=== PATIENT | female | born 1960 | race Caucasian/White ===

== ENCOUNTER 2018-03-26 01:12 | Inpatient (IN) ==
--- NOTE | 2018-03-26 01:50 | ED ---
HPI General Chief complaint: Psychiatric Symptoms Stated complaint: Vol Psy Time Seen by Provider: 03/26/18 01:44 History of Present Illness HPI narrative: Examined in the presence of a female nurse. This is a 57-year- old female who presents requesting psychiatric evaluation. She reports that she has "mental problems" and insomnia. She reports that her family members were feeling stressed out because of her behavior. It is very difficult to obtain any additional information from the patient. She reports that the police dropped her off here. According to the triage nurse she did not see any police dropped her off. The patient reports that she has an unknown psychiatric diagnosis for which she is prescribed Latuda by someone named Gretel Cardona. She denies any drug or alcohol use. During review of systems she complains of right eye redness. She reports that she poked her right eye 6 days ago. It has been red since then. She denies any eye pain, blurred vision , photophobia or drainage. Symptoms are moderate, duration unknown, aggravated by psychiatric history with no obvious alleviating factors. She has no other complaints at this time. Related Data Home Medications Medication Instructions Recorded Confirmed lurasidone [Latuda] 10 mg PO DAILY 03/26/18 03/26/18 Allergies Allergy/AdvReac Type Severity Reaction Status Date / Time Penicillins Allergy Hives Verified 03/26/18 01:20 sulfamethoxazole Allergy Hives Verified 03/26/18 03:02 [From Bactrim] trimethoprim [From Bactrim] Allergy Hives Verified 03/26/18 03:02 Review of Systems ROS: all other systems reviewed are negative PMFSH Medical History Medical History Orbit fracture (Acute) Patient denies medical problems (Acute) Surgical History Surgical History History of appendectomy (Acute) Social History Social History Substance History: No History of Abuse Second Hand Smoke Exposure: Yes Smoking Status: Current every day smoker Tobacco Type: Cigarettes How Often Do You Have a Drink Containing Alcohol: Monthly or less Recent Travel in [facility] within the Last 8 Weeks: No Recent Out of Country Travel within the Last 8 Weeks: No Exam Narrative Exam Narrative: GENERAL: This is a well-developed well-nourished female in no acute distress. She vacillates between crying and having a flat affect. SKIN: Warm and dry. HEAD: Atraumatic. Normocephalic. EYES: Pupils equal and round reactive to light extraocular muscles are intact. Right eye subconjunctival hemorrhaging is noted. There is no pain with extraocular range of motion. Wood's lamp reveals no areas of increased corneal uptake, negative Luis Miguel's. ENT: No nasal bleeding or discharge. Mucous membranes pink and moist. NECK: Trachea midline. No JVD. CARDIOVASCULAR: Regular rate and rhythm. No murmur appreciated. RESPIRATORY: No accessory muscle use. Clear to auscultation. Breath sounds equal bilaterally. GASTROINTESTINAL: Abdomen soft, non-tender, nondistended. Hepatic and splenic margins not palpable. MUSCULOSKELETAL: No obvious deformities. No clubbing. No cyanosis. No edema. NEUROLOGICAL: Awake and alert. No obvious cranial nerve deficits. Motor grossly within normal limits. Normal speech. PSYCHIATRIC: Flat affect. Insight and judgment appear impaired. Course Initial Documented Vital Signs Temperature 97.6 F 03/26/18 01:20 Pulse Rate 83 03/26/18 01:20 Respiratory Rate 18 03/26/18 01:20 Blood Pressure 159/77 H 03/26/18 01:20 Pulse Oximetry 98 03/26/18 01:20 Last Documented Vital Signs Temperature 97.6 F 03/26/18 01:20 Pulse Rate 83 03/26/18 01:20 Respiratory Rate 18 03/26/18 01:20 Blood Pressure 159/77 H 03/26/18 01:20 Pulse Oximetry 98 03/26/18 01:20 Medical Decision Making MDM Narrative Medical decision making narrative: 57-year-old female who was prescribed Latuda for an unknown psychiatric diagnosis presents for psychiatric evaluation. She has right eye subconjunctival hemorrhage which will resolve on its own. She has had difficulty sleeping for the past several days. She has no other medical complaints at this time. Mental health screening discussed with the patient. Psychiatric screen ordered. Lab work imaging studies have been reviewed. The patient is medically cleared for psychiatric disposition. Medical Screen Exam Complete: Yes Emergency Medical Condition: Yes Differential Diagnosis Differential Diagnosis: Bipolar disorder, schizophrenia, acute psychosis, schizoaffective disorder, substance-induced mood disorder Lab Data Result diagrams: 03/26/18 02:50 03/26/18 02:50 Lab Results 03/26/18 03/26/18 03/26/18 Range/Units 02:50 02:50 02:50 WBC 7.6 (4.0-11.0) th/mm3 RBC 4.74 (4.00-5.30) mil/mm3 Hgb 14.2 (11.6-15.3) gm/dL Hct 41.6 (35.0-46.0) % MCV 87.6 (80.0-100.0) fL MCH 29.9 (27.0-34.0) pg MCHC 34.1 (32.0-36.0) % RDW 13.9 (11.6-17.2) % Plt Count 224 (150-450) th/mm3 MPV 8.3 (7.0-11.0) fL Neut % (Auto) 59.7 (16.0-70.0) % Lymph % (Auto) 28.9 (9.0-44.0) % [place] % (Auto) 6.8 (0.0-8.0) % Eos % (Auto) 2.2 (0.0-4.0) % Baso % (Auto) 2.4 H (0.0-2.0) % Neut # (Auto) 4.5 (1.8-7.7) th/mm3 Lymph # (Auto) 2.2 (1.0-4.8) th/mm3 [place] # (Auto) 0.5 (0.0-0.9) th/mm3 Eos # (Auto) 0.2 (0.0-0.4) th/mm3 Baso # (Auto) 0.2 (0.0-0.2) th/mm3 WBC Differential . Differential Comment Auto diff final Sodium 141 (136-145) meq/L Potassium 4.1 (3.5-5.1) meq/L Chloride 106 (98-107) meq/L Carbon Dioxide 27.9 (21.0-32.0) meq/L Anion Gap 7 (5-15) meq/L BUN 12 (7-18) mg/dL Creatinine 0.69 (0.50-1.00) mg/dL Estimated GFR 88 L (>89) mL/min Random Glucose 105 (74-106) mg/dL Calcium 9.2 (8.5-10.1) mg/dL Magnesium 2.4 (1.5-2.5) mg/dL Total Bilirubin 0.2 (0.2-1.0) mg/dL AST 30 (15-37) U/L ALT 58 H (10-53) U/L Alkaline Phosphatase 111 (45-117) U/L Total Protein 8.2 (6.4-8.2) g/dL Albumin 4.2 (3.4-5.0) g/dL TSH 3.210 (0.358-3.740) uIU/mL Urine Color (Yellw/Straw) Urine Clarity (Clear) Urine pH (5.0-8.5) Ur Specific [place] (1.002-1.035) Urine Protein (Neg-Trace) mg/dL Urine Glucose (UA) (Negative) mg/dL Urine Ketones (Negative) mg/dL Urine Occult Blood (Negative) Urine Nitrate (Negative) Urine Bilirubin (Negative) Urine Urobilinogen (Less than 2) mg/dL Ur Leukocyte Esterase (Negative) Urine RBC (0-3) /hpf Urine WBC (0-5) /hpf Ur Squamous Epith Cells (0-5) /hpf Urine Bacteria (None) /hpf Urine Mucus (Occasional) /lpf Micro UA Comment Ur Microscopic Review Urine Culture Comments Urine Opiates Screen Neg (Neg) Ur Barbiturates Screen Neg (Neg) Ur Amphetamines Screen Neg (Neg) U Benzodiazepines Scrn Neg (Neg) Urine Cocaine Screen Neg (Neg) U Cannabinoids Screen Neg (Neg) Serum Alcohol Less than 3 (0-5) mg/dL 03/26/18 Range/Units 02:50 WBC (4.0-11.0) th/mm3 RBC (4.00-5.30) mil/mm3 Hgb (11.6-15.3) gm/dL Hct (35.0-46.0) % MCV (80.0-100.0) fL MCH (27.0-34.0) pg MCHC (32.0-36.0) % RDW (11.6-17.2) % Plt Count (150-450) th/mm3 MPV (7.0-11.0) fL Neut % (Auto) (16.0-70.0) % Lymph % (Auto) (9.0-44.0) % [place] % (Auto) (0.0-8.0) % Eos % (Auto) (0.0-4.0) % Baso % (Auto) (0.0-2.0) % Neut # (Auto) (1.8-7.7) th/mm3 Lymph # (Auto) (1.0-4.8) th/mm3 [place] # (Auto) (0.0-0.9) th/mm3 Eos # (Auto) (0.0-0.4) th/mm3 Baso # (Auto) (0.0-0.2) th/mm3 WBC Differential Differential Comment Sodium (136-145) meq/L Potassium (3.5-5.1) meq/L Chloride (98-107) meq/L Carbon Dioxide (21.0-32.0) meq/L Anion Gap (5-15) meq/L BUN (7-18) mg/dL Creatinine (0.50-1.00) mg/dL Estimated GFR (>89) mL/min Random Glucose (74-106) mg/dL Calcium (8.5-10.1) mg/dL Magnesium (1.5-2.5) mg/dL Total Bilirubin (0.2-1.0) mg/dL AST (15-37) U/L ALT (10-53) U/L Alkaline Phosphatase (45-117) U/L Total Protein (6.4-8.2) g/dL Albumin (3.4-5.0) g/dL TSH (0.358-3.740) uIU/mL Urine Color Straw (Yellw/Straw) Urine Clarity Clear (Clear) Urine pH 5.0 (5.0-8.5) Ur Specific [place] 1.005 (1.002-1.035) Urine Protein Negative (Neg-Trace) mg/dL Urine Glucose (UA) Negative (Negative) mg/dL Urine Ketones Negative (Negative) mg/dL Urine Occult Blood Small H (Negative) Urine Nitrate Negative (Negative) Urine Bilirubin Negative (Negative) Urine Urobilinogen Less than 2 (Less than 2) mg/dL Ur Leukocyte Esterase Negative (Negative) Urine RBC 1 (0-3) /hpf Urine WBC 1 (0-5) /hpf Ur Squamous Epith Cells <1 (0-5) /hpf Urine Bacteria Rare H (None) /hpf Urine Mucus Few H (Occasional) /lpf Micro UA Comment Culture not ind Ur Microscopic Review Not Reportable Urine Culture Comments Culture not ind Urine Opiates Screen (Neg) Ur Barbiturates Screen (Neg) Ur Amphetamines Screen (Neg) U Benzodiazepines Scrn (Neg) Urine Cocaine Screen (Neg) U Cannabinoids Screen (Neg) Serum Alcohol (0-5) mg/dL Imaging Data Radiologist's impression: Head CT 03/26/18 01:45 CONCLUSION: No acute intracranial abnormality. . Discharge Plan Physicians Team ED Provider: Yadira Hurley ED Midlevel Provider: Mayito Eduardo Primary Care Provider: Silvina Fitzpatrick Rxs /Orders / Referrals /Forms Prescriptions: No Action lurasidone [Latuda] 20 mg Tablet 10 mg PO DAILY RF: 0 Discharge Interventions Interventions: Vital Signs Last Done: 03/26/18 02:25 Status ED Status: With Doctor
--- NOTE | 2018-03-26 02:32 | CT ---
EXAM DATE: 03/26/2018 1:48 AM EDT AGE/SEX: 57 years / Female INDICATIONS: Altered mental status. CLINICAL DATA: This is the patient's initial encounter. Patient reports that signs and symptoms have been present for 1 day and indicates a pain score of 0/10. MEDICAL/SURGICAL HISTORY: None. None. RADIATION DOSE: 34.28 CTDI (mGy) COMPARISON: No prior exams available for comparison. TECHNIQUE: CT of the head without contrast. Using automated exposure control and adjustment of the mA and/or kV according to patient size, radiation dose was kept as low as reasonably achievable to ob tain optimal diagnostic quality images. DICOM format image data is available electronically for revi ew and comparison. FINDINGS: Cerebrum: The ventricles are normal for age. No evidence of midline shift, mass lesion, hemorrhage or acute infarction. No extraaxial fluid collections are seen. Posterior Fossa: The cerebellum and brainstem are intact. The 4th ventricle is midline. The cerebe llopontine angle is unremarkable. Extracranial: The visualized portion of the orbits is intact. There are surgical hardware at the inf erior left orbit. Skull: The calvaria is intact. No evidence of skull fracture. CONCLUSION: No acute intracranial abnormality. . Electronically signed by: Pj Olson MD 03/26/2018 2:31 AM EDT
[2018-03-26 03:13] LABS: Baso # (Auto) 0.2 th/mm3 (0.0-0.2); Baso % (Auto) 2.4 % (0.0-2.0); Eos # (Auto) 0.2 th/mm3 (0.0-0.4); Eos % (Auto) 2.2 % (0.0-4.0); Hematocrit 41.6 % (35.0-46.0); Hemoglobin 14.2 gm/dL (11.6-15.3); Lymph # (Auto) 2.2 th/mm3 (1.0-4.8); Lymph % (Auto) 28.9 % (9.0-44.0); Mean Corpuscular HGB Conc 34.1 % (32.0-36.0); Mean Corpuscular Hemoglobin 29.9 pg (27.0-34.0); Mean Corpuscular Volume 87.6 fL (80.0-100.0); Mean Platelet Volume 8.3 fL (7.0-11.0); Mono # (Auto) 0.5 th/mm3 (0.0-0.9); Mono % (Auto) 6.8 % (0.0-8.0); Neut # (Auto) 4.5 th/mm3 (1.8-7.7); Neut % (Auto) 59.7 % (16.0-70.0); Platelet Count 224 th/mm3 (150-450); Red Blood Count 4.74 mil/mm3 (4.00-5.30); Red Cell Distribution Width 13.9 % (11.6-17.2); White Blood Count 7.6 th/mm3 (4.0-11.0)
[2018-03-26 03:14] LABS: Bacteria,Urine Rare /hpf; Bilirubin,Urine Negative (Negative); Clarity,Urine Clear (Clear); Color,Urine Straw (Yellw/Straw); Glucose,Urine (UA) Negative (Negative); Leukocyte Esterase,Urine Negative (Negative); Mucus,Urine Few /lpf (Occasional); Nitrite,Urine Negative (Negative); Specific Gravity,Urine 1.005 (1.002-1.035); Squamous Epithelial Cell,Urine <1 /hpf (0-5)
[2018-03-26 03:19] LABS: Amphetamine Screen,Urine Neg (Neg); Barbiturate Screen,Urine Neg (Neg); Cannabinoid Screen,Urine Neg (Neg); Cocaine Screen,Urine Neg (Neg)
[2018-03-26 03:22] LABS: Opiate Screen,Urine Neg (Neg)
[2018-03-26 03:24] LABS: Alanine Aminotransferase 58 U/L (10-53); Albumin 4.2 g/dL (3.4-5.0); Anion Gap 7 meq/L (5-15); Aspartate Aminotransferase 30 U/L (15-37); Blood Urea Nitrogen 12 mg/dL (7-18); Calcium 9.2 mg/dL (8.5-10.1); Carbon Dioxide 27.9 meq/L (21.0-32.0); Chloride 106 meq/L (98-107); Glomerular Filtration Rate 88 mL/min (>89); Glucose,Random 105 mg/dL (74-106); Magnesium 2.4 mg/dL (1.5-2.5); Potassium 4.1 meq/L (3.5-5.1); Sodium 141 meq/L (136-145)
[2018-03-26 03:34] LABS: Alkaline Phosphatase 111 U/L (45-117); Total Protein 8.2 g/dL (6.4-8.2)
--- NOTE | 2018-03-26 15:10 | ED ---
HPI - Psych - General Source: family (Ex [id number]) Mode of arrival: ambulatory Limitations: other (mental stae) - History of Present Illness MD complaint: other (Unable to sleep) Onset (ago): week(s) Duration: constant History of same: Yes Relieving factors: none Exacerbating factors: none Context: other (None reported by the patient) Associated psychiatric symptoms: depression Associated symptoms: denies other symptoms Treatments prior to arrival: none If self harm: other - General Chief Complaint: Psychiatric Symptoms Stated Complaint: Vol Psy Time Seen by Provider: 03/26/18 15:07 - History of Present Illness HPI Narrative: History of Present Illness HPI narrative: This is a 57-year-old, female, lives with her 2 sons, unknown psychiatric history who presents on a voluntary status requesting psychiatric evaluation having been dropped off by the police. She reports that she has "mental problems" and insomnia. She reports that her family members were feeling stressed out because of her behavior. It is very difficult to obtain any additional information from the patient. The patient reports that she has an unknown psychiatric diagnosis for which she is prescribed Latuda by someone named Gretel Cardona at [facility]. The patient is seen. EMR reviewed. No previous contact with [facility]. The patient is alert and oriented. She appears anxious. She is internally preoccupied but denies hearing any voices. She tells me that she is in the hospital because there are some people following her while she is driving her car, dad the dog that she has is" a drug dog", and that she is afraid that someone has harmed a woman in [place]. It is difficult to obtain any further information from her due to her level of disorganization. While being interviewed by the nurse the patient suddenly starts walking towards the door and states" I have to go home because my house is very messy". I contacted her ex-, Kieran Butterfield who is listed as a contact and service clerks supervisor at [phone]. He tells me that the patient has had mental issues for the past 15 years but that she is very secretive about her treatment and her condition. His 17-year-old son called him last night at approximately 1 in the morning letting him know that the patient has not slept in the past 3-4 days, has been talking in a nonsensical manner, and that she has been acting somewhat restless. He goes on to state that for the past 2 weeks she has been experiencing some difficulty and that she was at [facility] 2 days ago but was discharged home. He has called Dr. Gretel Cardona at [facility] and has left a message for them to return his call. (Sherita Rivas) - Related Data Home Medications Medication Instructions Recorded Confirmed lurasidone [Latuda] 10 mg PO DAILY 03/26/18 03/26/18 Allergies Allergy/AdvReac Type Severity Reaction Status Date / Time Penicillins Allergy Hives Verified 03/26/18 01:20 sulfamethoxazole Allergy Hives Verified 03/26/18 03:02 [From Bactrim] trimethoprim [From Bactrim] Allergy Hives Verified 03/26/18 03:02 PMFSH - History History Provided By: Patient (Denies), Family Member - Medical History Medical History: Medical History (Last Updated 03/26/18 @ 01:22 by Amy Cardona) Orbit fracture Patient denies medical problems - Surgical History Surgical History: Surgical History (Last Updated 03/26/18 @ 01:22 by Amy Cardona) History of appendectomy - Social History I have reviewed the patient's Social History: Yes - Tobacco History Second Hand Smoke Exposure: Yes Tobacco Use In Past 30 Days: Yes Smoking Status: Current every day smoker Tobacco Type: Cigarettes - Alcohol History How Often Do You Have a Drink Containing Alcohol: Monthly or less - Substance Use History Substance History: No History of Abuse - Travel History Recent Travel in the [place] Within the Last 8 Weeks: No Recent Travel Out of the Country Within the Last 8 Weeks: No - Immunization History Tetanus Immunization: Unsure Psychiatric History - Psychiatric History Psychiatric Treatment History: History of Psychiatric Treatment History of Inpatient Treatment: Yes Firearms in Home: No - Psychiatric History Mr. Butterfield reports she has had multiple admissions to [facility] and that she has been experiencing psychiatric symptoms for the past 15 years. He does not have knowledge of her most recent medications but will call the nurses with a report. (Sherita Rivas) Mental Status Examination Consciousness: Alert Orientation: x4 Motor Activity: Normal gait Speech: Hesitant, Slow Language: Adequate Fund of Knowledge: Adequate Attention and Concentration: Easily distracted Memory: Unremarkable (Unable to formally test) Mood: Sad, Anxious Affect: Labile Thought Process & Associations: Disorganized Thought Content: Bizarre thinking, Thought blocking, Delusional Hallucination Type: Other Delusion Type: Paranoid (Denies) Suicidal Ideation: No Suicidal Plan: No Suicidal Intention: No Homicidal Ideation: No Homicidal Plan: No Homicidal Intention: No Insight: Fair Judgment: Poor Initial Documented Vital Signs Temperature 97.6 F 03/26/18 01:20 Pulse Rate 83 03/26/18 01:20 Respiratory Rate 18 03/26/18 01:20 Blood Pressure 159/77 H 03/26/18 01:20 Pulse Oximetry 98 03/26/18 01:20 Last Documented Vital Signs Temperature 97.6 F 03/26/18 01:20 Pulse Rate 85 03/26/18 05:59 Respiratory Rate 18 03/26/18 01:20 Blood Pressure 126/76 03/26/18 05:59 Pulse Oximetry 98 03/26/18 01:20 MDM - Psych - Diagnosis (1) Unspecified psychosis Status: Acute - Lab Data Result diagrams: 03/26/18 02:50 03/26/18 02:50 - [facility] Narrative Medical decision making narrative: At this time patient has been placed under an involuntary status. She will be admitted to inpatient psychiatry due to her level of impairment including paranoia, reports that she has not slept in the past 4 days. She requires increase in level of care for further observation, safety, stabilization. ( Sherita Rivas) - Lab Data Lab Results 03/26/18 03/26/18 03/26/18 Range/Units 02:50 02:50 02:50 WBC 7.6 (4.0-11.0) th/mm3 RBC 4.74 (4.00-5.30) mil/mm3 Hgb 14.2 (11.6-15.3) gm/dL Hct 41.6 (35.0-46.0) % MCV 87.6 (80.0-100.0) fL MCH 29.9 (27.0-34.0) pg MCHC 34.1 (32.0-36.0) % RDW 13.9 (11.6-17.2) % Plt Count 224 (150-450) th/mm3 MPV 8.3 (7.0-11.0) fL Neut % (Auto) 59.7 (16.0-70.0) % Lymph % (Auto) 28.9 (9.0-44.0) % [place] % (Auto) 6.8 (0.0-8.0) % Eos % (Auto) 2.2 (0.0-4.0) % Baso % (Auto) 2.4 H (0.0-2.0) % Neut # (Auto) 4.5 (1.8-7.7) th/mm3 Lymph # (Auto) 2.2 (1.0-4.8) th/mm3 [place] # (Auto) 0.5 (0.0-0.9) th/mm3 Eos # (Auto) 0.2 (0.0-0.4) th/mm3 Baso # (Auto) 0.2 (0.0-0.2) th/mm3 WBC Differential . Differential Comment Auto diff final Sodium 141 (136-145) meq/L Potassium 4.1 (3.5-5.1) meq/L Chloride 106 (98-107) meq/L Carbon Dioxide 27.9 (21.0-32.0) meq/L Anion Gap 7 (5-15) meq/L BUN 12 (7-18) mg/dL Creatinine 0.69 (0.50-1.00) mg/dL Estimated GFR 88 L (>89) mL/min Random Glucose 105 (74-106) mg/dL Calcium 9.2 (8.5-10.1) mg/dL Magnesium 2.4 (1.5-2.5) mg/dL Total Bilirubin 0.2 (0.2-1.0) mg/dL AST 30 (15-37) U/L ALT 58 H (10-53) U/L Alkaline Phosphatase 111 (45-117) U/L Total Protein 8.2 (6.4-8.2) g/dL Albumin 4.2 (3.4-5.0) g/dL TSH 3.210 (0.358-3.740) uIU/mL Urine Color (Yellw/Straw) Urine Clarity (Clear) Urine pH (5.0-8.5) Ur Specific [place] (1.002-1.035) Urine Protein (Neg-Trace) mg/dL Urine Glucose (UA) (Negative) mg/dL Urine Ketones (Negative) mg/dL Urine Occult Blood (Negative) Urine Nitrate (Negative) Urine Bilirubin (Negative) Urine Urobilinogen (Less than 2) mg/dL Ur Leukocyte Esterase (Negative) Urine RBC (0-3) /hpf Urine WBC (0-5) /hpf Ur Squamous Epith Cells (0-5) /hpf Urine Bacteria (None) /hpf Urine Mucus (Occasional) /lpf Micro UA Comment Ur Microscopic Review Urine Culture Comments Urine Opiates Screen Neg (Neg) Ur Barbiturates Screen Neg (Neg) Ur Amphetamines Screen Neg (Neg) U Benzodiazepines Scrn Neg (Neg) Urine Cocaine Screen Neg (Neg) U Cannabinoids Screen Neg (Neg) Serum Alcohol Less than 3 (0-5) mg/dL 03/26/18 Range/Units 02:50 WBC (4.0-11.0) th/mm3 RBC (4.00-5.30) mil/mm3 Hgb (11.6-15.3) gm/dL Hct (35.0-46.0) % MCV (80.0-100.0) fL MCH (27.0-34.0) pg MCHC (32.0-36.0) % RDW (11.6-17.2) % Plt Count (150-450) th/mm3 MPV (7.0-11.0) fL Neut % (Auto) (16.0-70.0) % Lymph % (Auto) (9.0-44.0) % [place] % (Auto) (0.0-8.0) % Eos % (Auto) (0.0-4.0) % Baso % (Auto) (0.0-2.0) % Neut # (Auto) (1.8-7.7) th/mm3 Lymph # (Auto) (1.0-4.8) th/mm3 [place] # (Auto) (0.0-0.9) th/mm3 Eos # (Auto) (0.0-0.4) th/mm3 Baso # (Auto) (0.0-0.2) th/mm3 WBC Differential Differential Comment Sodium (136-145) meq/L Potassium (3.5-5.1) meq/L Chloride (98-107) meq/L Carbon Dioxide (21.0-32.0) meq/L Anion Gap (5-15) meq/L BUN (7-18) mg/dL Creatinine (0.50-1.00) mg/dL Estimated GFR (>89) mL/min Random Glucose (74-106) mg/dL Calcium (8.5-10.1) mg/dL Magnesium (1.5-2.5) mg/dL Total Bilirubin (0.2-1.0) mg/dL AST (15-37) U/L ALT (10-53) U/L Alkaline Phosphatase (45-117) U/L Total Protein (6.4-8.2) g/dL Albumin (3.4-5.0) g/dL TSH (0.358-3.740) uIU/mL Urine Color Straw (Yellw/Straw) Urine Clarity Clear (Clear) Urine pH 5.0 (5.0-8.5) Ur Specific [place] 1.005 (1.002-1.035) Urine Protein Negative (Neg-Trace) mg/dL Urine Glucose (UA) Negative (Negative) mg/dL Urine Ketones Negative (Negative) mg/dL Urine Occult Blood Small H (Negative) Urine Nitrate Negative (Negative) Urine Bilirubin Negative (Negative) Urine Urobilinogen Less than 2 (Less than 2) mg/dL Ur Leukocyte Esterase Negative (Negative) Urine RBC 1 (0-3) /hpf Urine WBC 1 (0-5) /hpf Ur Squamous Epith Cells <1 (0-5) /hpf Urine Bacteria Rare H (None) /hpf Urine Mucus Few H (Occasional) /lpf Micro UA Comment Culture not ind Ur Microscopic Review Not Reportable Urine Culture Comments Culture not ind Urine Opiates Screen (Neg) Ur Barbiturates Screen (Neg) Ur Amphetamines Screen (Neg) U Benzodiazepines Scrn (Neg) Urine Cocaine Screen (Neg) U Cannabinoids Screen (Neg) Serum Alcohol (0-5) mg/dL
[2018-03-26] MEDS ORDERED: Aluminum/Magnesium/Simethacone Susp 30 ML UDC PO PRN (15:40)
[2018-03-27 10:20] LABS: Calcium 9.4 mg/dL (8.5-10.1); Carbon Dioxide 27.8 meq/L (21.0-32.0); Potassium 3.6 meq/L (3.5-5.1)
[2018-03-27 10:30] LABS: Chol/HDL Ratio 3.65 Ratio; Thyroid Stimulating Hormone 1.96 uIU/mL (0.358-3.740)
--- NOTE | 2018-03-27 13:37 | P.HPPSY ---
Provisional Diagnosis Admission Date: March 26, 2018 15:45 Competence Certification of Person's Competence To Provide Express and Informed Consent I have personally examined Veronica Conti, a person being served at [facility] on, March 27, 2018 3044. Express and informed consent means consent voluntarily given in writing, by a competent person, after sufficient explanation and disclosure of the subject matter involved to enable the person to make a knowing and willful decision without any element of force, fraud, deceit, duress, or other form of constraint or coercion. This person is 18 years of age or older, is not now known to be incompetent to consent to treatment with a guardian advocate, and does not have a health care surrogate or proxy currently making medical treatment decisions. I have found this person to be one of the following: [] Competent to provide express and informed consent, as defined above, for voluntary admission to this facility and is competent to provide express and informed consent for treatment. He/she has the consistent capacity to make well reasoned, willful, and knowing decisions concerning his or her medical or mental health treatment. The person fully and consistently understands the purpose of the admission for examination/placement and is fully capable of personally exercising all rights assured under [place] [X] Incompetent to provide express and informed consent to voluntary admission, and this is incompetent to provide express and informed consent to treatment. The person must be transferred to involuntary status and a petition for a guardian advocate filed with the Circuit Court. [] Refusing to provide express and informed consent to voluntary admission but is competent to provide express and informed consent for treatment. The person must be discharged or transferred to involuntary status. Form shall be completed within 24 hours of a person's arrival at the receiving facility and filed in the clinical record of each person: 1. Admitted on a voluntary basis 2. Permitted to provide express and informed consent to his/her own treatment 3. Allowed to transfer from involuntary to voluntary status 4. Prior to permitting a person to consent to his or her own treatment after having been previously found incompetent to consent to treatment. History of Present Illness Capacity: Lacks capacity Chief Complaint: psychosis History of Present Illness: Patient is a 57-year-old female with a likely history of psychosis. She is being admitted to the psychiatric unit for bizarre behavior and thought process. Patient has poor insight and is evasive during the interview. She appears to have difficulty understanding my speech and asked me multiple times to repeat myself. She is responding to internal stimuli throughout the interview looking about the room and laughing and smiling to herself. She minimizes her psychiatric history and gives frequent contradicting answers. Per record, patient had bizarre delusions including that her dad was her dog, that other people were driving her car, and that somebody was coming through the window. Today, she denies suicidal or homicidal ideation intent or plan. Past psych: pt admits to multiple inpatient admissions, denies suicide attempts , claims to have only been on latuda which she is not compliant with for the past seven months Medical: see chart Social: has a and 3 children, denies substance use. 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 This includes certification that hospital inpatient services are reasonable and necessary and in the case of services not specified as inpatient-only under 42 CFR 419.22(n), that they are appropriately provided as inpatient services in accordance to with the 2-midnight benchmark under 43 CFR 412.3(e) I certify that inpatient psychiatric hospital services are medically necessary. Evaluation and treatment and/or diagnostic testing are expected to improve the patient's condition. The patient needs on a daily basis, active treatment furnished directly by or requiring the supervision of inpatient psychiatric facility personnel. Estimated Total Length of Stay (Days): 8 Plans for Post Hospital Care: Home REPLACED BY [facility] - History History Provided By: Patient - Medical History Medical History: Medical History (Last Reviewed 03/27/18 @ 14:31 by Rubén Souza DO) Orbit fracture Patient denies medical problems - Surgical History Surgical History: Surgical History (Last Reviewed 03/27/18 @ 14:31 by Rubén Souza DO) History of arthroscopic knee surgery History of appendectomy - Tobacco History Second Hand Smoke Exposure: Yes Tobacco Use In Past 30 Days: Yes Smoking Status: Current every day smoker Tobacco Type: Cigarettes - Alcohol History How Often Do You Have a Drink Containing Alcohol: Monthly or less - Substance Use History Substance History: No History of Abuse - Travel History Recent Travel in the [place] Within the Last 8 Weeks: No Recent Travel Out of the Country Within the Last 8 Weeks: No - Immunization History Tetanus Immunization: Unsure Medications and Allergies Active Medications: Active Medications Al Hydrox/Mg Hydrox/Simethicone (Mag-Al Plus Susp Liq) 30 ml PO Q6H PRN PRN Reason: DYSPEPSIA Al Hydroxide/Mg Hydroxide (Milk Of Magnesia Liq) 30 ml PO Q12H PRN PRN Reason: Mild Constipation Sennosides (Senokot) 17.2 mg PO Q12H PRN PRN Reason: Moderate Constipation Allergies Allergy/AdvReac Type Severity Reaction Status Date / Time Penicillins Allergy Hives Verified 03/26/18 01:20 sulfamethoxazole Allergy Hives Verified 03/26/18 03:02 [From Bactrim] trimethoprim [From Bactrim] Allergy Hives Verified 03/26/18 03:02 Home Medications Medication Instructions Recorded Confirmed Type lurasidone [Latuda] 10 mg PO DAILY 03/26/18 03/26/18 History Results - Labs CBC & Chem 7: 03/26/18 02:50 03/27/18 08:57 Labs: Laboratory Results - last 24 hr 03/27/18 08:57 Sodium 142 Potassium 3.6 Chloride 105 Carbon Dioxide 27.8 Anion Gap 9 BUN 11 Creatinine 0.74 Estimated GFR 81 L Random Glucose 90 Calcium 9.4 Triglycerides 196 H Cholesterol 172 LDL Cholesterol, Calc 86 HDL Cholesterol 47.0 Cholesterol/HDL Ratio 3.65 TSH 1.960 Exam Vital signs: Vital Signs 03/26/18 22:04 03/27/18 04:51 Temperature 96.4 F L 97.9 F Pulse Rate 82 68 Respiratory Rate 16 16 Blood Pressure 122/58 L 142/64 H Pulse Oximetry 99 100 Mental Status Examination Appearance: Disheveled Consciousness: Alert Orientation: x4 Motor Activity: Normal gait Speech: Hesitant, Slow Language: Adequate Fund of Knowledge: Adequate Attention and Concentration: Easily distracted Memory: Unremarkable (Unable to formally test) Mood: Sad, Anxious Affect: Labile Thought Process & Associations: Disorganized Thought Content: Bizarre thinking, Thought blocking, Delusional Hallucination Type: Other Delusion Type: Paranoid (Denies) Suicidal Ideation: No Suicidal Plan: No Suicidal Intention: No Homicidal Ideation: No Homicidal Plan: No Homicidal Intention: No Insight: Fair Judgment: Poor Assessment and Plan - Assessment (1) Unspecified psychosis Code(s): F29 - Unspecified psychosis not due to a substance or known physiological condition Status: Acute - Plan Plan: Estimated LOS: [] days We will petition patient, she does not have capacity of decision making concerning her admission at this time. Justification for Continued Inpatient Stay: Patient would decompensate in a less restrictive setting
[2018-03-27] MEDS ORDERED: Bisacodyl 10 MG Supp RECTAL PRN (14:35)
[2018-03-27] MEDS ORDERED: Aluminum/Magnesium/Simethacone Susp 30 ML UDC PO PRN (14:35)
[2018-03-27] MEDS ORDERED: LORazepam 1 MG Tablet PO PRN (14:35)
[2018-03-27] MEDS: Ibuprofen 600 MG Tablet PO SCH (15:30)
[2018-03-27 17:43] LABS: Hemoglobin A1c 5.6 % (4.3-6.0)
[2018-03-27] MEDS: Senna/Docusate Sodium 8.6/50 MG Tablet PO SCH (20:47)
[2018-03-28] MEDS: Ibuprofen 600 MG Tablet PO SCH ×5 (01:20→22:15)
[2018-03-28] MEDS: Senna/Docusate Sodium 8.6/50 MG Tablet PO SCH ×2 (08:37→20:17)
[2018-03-28 13:45] LABS: Hemoglobin A1c 5.8 % (4.3-6.0)
--- NOTE | 2018-03-28 15:21 | P.CONPSY ---
Provisional Diagnosis Admission Date: March 26, 2018 15:45 Greene I.: 1. Unspecified psychosis Greene II.: Deferred History of Present Illness Service: Psychiatry Consult date: 03/28/18 Requesting Physician: Rubén Souza Reason for Consult: Second opinion for involuntary psychiatric hospitalization Primary Care Provider: Silvina Fitzpatrick DO History of Present Illness: From Dr. Souza's H&P: Patient is a 57-year-old female with a likely history of psychosis. She is being admitted to the psychiatric unit for bizarre behavior and thought process. Patient has poor insight and is evasive during the interview. She appears to have difficulty understanding my speech and asked me multiple times to repeat myself. She is responding to internal stimuli throughout the interview looking about the room and laughing and smiling to herself. She minimizes her psychiatric history and gives frequent contradicting answers. Per record, patient had bizarre delusions including that her dad was her dog, that other people were driving her car, and that somebody was coming through the window. Today, she denies suicidal or homicidal ideation intent or plan. Past psych: pt admits to multiple inpatient admissions, denies suicide attempts , claims to have only been on latuda which she is not compliant with for the past seven months Medical: see chart Social: has a and 3 children, denies substance use. 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 Chart reviewed. I see a nursing note on the chart that person listed as patient's in the EMR is in fact her ex- . Note indicates son Alexy might be able to serve as healthcare surrogate. Case discussed with nursing staff. I have explained the purpose of my evaluation to the patient today. On my examination today, the patient presents as oddly related. She is intrusive and trying to get into other people 's rooms. Mood is reportedly "up and down." She endorses auditory hallucinations of whispers. Content is reportedly difficult to discern, the patient describes it as "dreamy things." No reported command auditory hallucinations to hurt self or others. Sleep is reportedly quite poor. I can elicit no paranoia, no ideas of reference, no feelings of thought manipulation. She denies any suicidal or homicidal ideation although it is unclear whether she is reliable to contract for safety. No physical complaints. I do note that the patient's right eye is red, and she says that she poked herself unintentionally in the eye with a pair of metal tweezers a few days ago. Past psychiatric history: The patient reports a history of "undetermined psychotic disorder." She says that she follows with a nurse practitioner by the name of Cardona on an outpatient basis and is prescribed Latuda, 10 mg daily. She reports that she was psychiatrically hospitalized at [facility] about 5 or 6 years ago. She denies a history of suicide attempts. Family history: The patient denies any family history of mental illness. Chemical dependency history: The patient denies any abuse of drugs or alcohol. Social history: The patient lives with her 2 sons. 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 She denies any history. Denies any legal history. She is . She says that her ex- has left firearms in her house, although she denies having access to them. She denies ever having had a suicide plan involving a firearm. I did endeavor to engage the patient in a discussion of pharmacotherapeutic options for management of her reported symptoms, but I find, like Dr. Souza, that the patient is unable to understand and negotiate treatment in her current psychotic state and requires a healthcare surrogate to provide consent for psychotropic medications. Given the information on the chart as indicated above , I did endeavor to reach out to her son Alexy at [phone] and left a generic voicemail requesting a call back. Review of Systems All other systems reviewed negative except as stated in HPI (Limitation: Psychosis) [facility] - History History Provided By: Patient - Medical History Medical History: Medical History (Last Reviewed 03/27/18 @ 14:31 by Rubén Souza DO) Orbit fracture Patient denies medical problems - Surgical History Surgical History: Surgical History (Last Reviewed 03/27/18 @ 14:31 by Rubén Souza DO) History of arthroscopic knee surgery History of appendectomy - Tobacco History Second Hand Smoke Exposure: Yes Tobacco Use In Past 30 Days: Yes Smoking Status: Current every day smoker Tobacco Type: Cigarettes - Alcohol History How Often Do You Have a Drink Containing Alcohol: Monthly or less - Substance Use History Substance History: No History of Abuse - Travel History Recent Travel in the [facility] Within the Last 8 Weeks: No Recent Travel Out of the Country Within the Last 8 Weeks: No - Immunization History Tetanus Immunization: Unsure Medications and Allergies Active Medications: Active Medications Al Hydrox/Mg Hydrox/Simethicone (Mag-Al Plus Susp Liq) 30 ml PO Q6H PRN PRN Reason: DYSPEPSIA Al Hydroxide/Mg Hydroxide (Milk Of Magnesia Liq) 30 ml PO Q12H PRN PRN Reason: Mild Constipation Bisacodyl (Dulcolax Supp) 10 mg RECTAL DAILY PRN PRN Reason: SEVERE CONSITIPATION Hydroxyzine HCl (Atarax) 50 mg PO Q6H PRN PRN Reason: ANXIETY Ibuprofen (Motrin) 600 mg PO Q8HR [facility] Last Admin: 03/28/18 14:52 Dose: Not Given Lactulose (Lactulose Liq) 30 ml PO DAILY PRN PRN Reason: SEVERE CONSITIPATION Lorazepam (Ativan) 1 mg PO Q6H PRN PRN Reason: MODERATE TO SEVERE ANXIETY Senna/Docusate Sodium (Ramona-Colace) 1 tab PO BID [facility] Last Admin: 03/28/18 08:37 Dose: Not Given Sennosides (Senokot) 17.2 mg PO Q12H PRN PRN Reason: Moderate Constipation Allergies Allergy/AdvReac Type Severity Reaction Status Date / Time Penicillins Allergy Hives Verified 03/26/18 01:20 sulfamethoxazole Allergy Hives Verified 03/26/18 03:02 [From Bactrim] trimethoprim [From Bactrim] Allergy Hives Verified 03/26/18 03:02 Home Medications Medication Instructions Recorded Confirmed Type lurasidone [Latuda] 10 mg PO DAILY 03/26/18 03/26/18 History Exam Vital signs: Vital Signs 03/27/18 16:58 03/28/18 05:48 Temperature 97.9 F 97.3 F L Pulse Rate 76 Respiratory Rate 18 Blood Pressure 130/73 123/56 L Pulse Oximetry 98 Narrative: Physical exam was completed by ED provider. On my examination today, the patient appears to be in no acute physical distress. No motor abnormalities noted. Right eye right noted. Labs and vital signs reviewed: Laboratory Tests 03/26/18 03/26/18 03/26/18 02:50 02:50 02:50 WBC 7.6 Hgb 14.2 Plt Count 224 Sodium Potassium Chloride Carbon Dioxide BUN Creatinine Estimated GFR Hemoglobin A1c AST 30 ALT 58 H Alkaline Phosphatase 111 TSH 3.210 Urine Opiates Screen Neg Ur Barbiturates Screen Neg Ur Amphetamines Screen Neg U Benzodiazepines Scrn Neg Urine Cocaine Screen Neg U Cannabinoids Screen Neg Serum Alcohol Less than 3 03/27/18 03/27/18 08:57 08:57 WBC Hgb Plt Count Sodium 142 Potassium 3.6 Chloride 105 Carbon Dioxide 27.8 BUN 11 Creatinine 0.74 Estimated GFR 81 L Hemoglobin A1c 5.6 AST ALT Alkaline Phosphatase TSH Urine Opiates Screen Ur Barbiturates Screen Ur Amphetamines Screen U Benzodiazepines Scrn Urine Cocaine Screen U Cannabinoids Screen Serum Alcohol EKG read as sinus rhythm with a QTC of 400 ms, not prolonged. Mental Status Examination Appearance: Appropriate Consciousness: Alert Orientation: Person, Place (At least) Motor Activity: Normal gait Speech: Unremarkable Language: Other (Rambling) Fund of Knowledge: Adequate Attention and Concentration: Easily distracted Memory: Unremarkable (Grossly intact on clinical exam) Mood: Other ("Up and down") Affect: Other (Silly, oddly related) Thought Process & Associations: Tangential Thought Content: Bizarre thinking, Hallucinations, Thought blocking Hallucination Type: Auditory Delusion Type: None Suicidal Ideation: No Suicidal Plan: No Suicidal Intention: No Homicidal Ideation: No Homicidal Plan: No Homicidal Intention: No Insight: Poor Judgment: Poor Assessment and Plan - Assessment (1) Unspecified psychosis Code(s): F29 - Unspecified psychosis not due to a substance or known physiological condition Status: Acute - Plan Plan: Given the circumstances of the patient's presentation here and her presentation on my examination today, I concur with Dr. Souza that the patient meets criteria for involuntary psychiatric hospitalization under the Valladares act. I have completed the second opinion paperwork. This note serves also as a progress note for the day. Psychotropic medications are on hold for lack of consent from appropriate health care surrogate. Patient likely would benefit from initiation of an antipsychotic medication. I will request hospitalist consultation for patient's red eye and request that they determine if full ophthalmologic consultation is necessary or if this is simply a self-limited subconjunctival hemorrhage. Continue to monitor on the inpatient unit. Continue other medications and care as ordered. Justification for Continued Inpatient Stay: Impairment in reality construction. High risk for decompensation in less restrictive environment. Discharge Planning: Pending psychiatric stabilization. Request Healthcare Surrogate/Guardian Advocate?: Yes
--- NOTE | 2018-03-28 16:49 | P.CON ---
History of Present Illness Service: Hospitalist Consult date: 03/28/18 Requesting Physician: Blair Kelley Reason for Consult: Medical management Primary Care Provider: Silvina Fitzpatrick DO Chief Complaint: High injury History of Present Illness: Patient is a 57-year-old female who was admitted on Valladares act due to disorganized and bizarre behavior. She denies any significant medical history however this is questionable due to her mental state. At admit she was noted to have redness in her right eye and hospitalist service was consulted. Patient tells me that she poked her right eye with tweezers about a week ago. Denies any changes in or loss of vision or discomfort other than some dryness. No foreign body sensation. No photophobia. She was treating with lubricating eyedrops at home. Reports that the eye has improved since its initial injury. She does wear contacts however she does not have them with her and has not been wearing recently. Review of Systems unobtainable due to mental status PMFSH - History History Provided By: Patient - Medical / Surgical Hx Neg / Unobtainable Medical Problems Denied: Unable to Obtain Surgical History: Unable to Obtain - Medical History Medical History: Medical History (Last Reviewed 03/28/18 @ 16:39 by LEE Ham) Orbit fracture Patient denies medical problems - Surgical History Surgical History: Surgical History (Last Reviewed 03/28/18 @ 16:39 by LEE Ham) History of arthroscopic knee surgery History of appendectomy - Family History Family History: Family History (Last Reviewed 03/28/18 @ 16:39 by LEE Ham) Other Family history unobtainable due to patient's condition - Tobacco History Second Hand Smoke Exposure: Yes Tobacco Use In Past 30 Days: Yes Smoking Status: Current every day smoker Tobacco Type: Cigarettes - Alcohol History How Often Do You Have a Drink Containing Alcohol: Monthly or less - Substance Use History Substance History: No History of Abuse - Travel History Recent Travel in the [place] Within the Last 8 Weeks: No Recent Travel Out of the Country Within the Last 8 Weeks: No - Immunization History Tetanus Immunization: Unsure Medications and Allergies Active Medications: Active Medications Al Hydrox/Mg Hydrox/Simethicone (Mag-Al Plus Susp Liq) 30 ml PO Q6H PRN PRN Reason: DYSPEPSIA Al Hydroxide/Mg Hydroxide (Milk Of Magnesia Liq) 30 ml PO Q12H PRN PRN Reason: Mild Constipation Bisacodyl (Dulcolax Supp) 10 mg RECTAL DAILY PRN PRN Reason: SEVERE CONSITIPATION Ibuprofen (Motrin) 600 mg PO Q8HR [facility] Last Admin: 03/28/18 14:52 Dose: Not Given Lactulose (Lactulose Liq) 30 ml PO DAILY PRN PRN Reason: SEVERE CONSITIPATION Senna/Docusate Sodium (Ramona-Colace) 1 tab PO BID [facility] Last Admin: 03/28/18 08:37 Dose: Not Given Sennosides (Senokot) 17.2 mg PO Q12H PRN PRN Reason: Moderate Constipation Allergies Allergy/AdvReac Type Severity Reaction Status Date / Time Penicillins Allergy Hives Verified 03/26/18 01:20 sulfamethoxazole Allergy Hives Verified 03/26/18 03:02 [From Bactrim] trimethoprim [From Bactrim] Allergy Hives Verified 03/26/18 03:02 Home Medications Medication Instructions Recorded Confirmed Type lurasidone [Latuda] 10 mg PO DAILY 03/26/18 03/26/18 History Physical Exam Vital signs: Vital Signs 03/27/18 16:58 03/28/18 05:48 Temperature 97.9 F 97.3 F L Pulse Rate 76 Respiratory Rate 18 Blood Pressure 130/73 123/56 L Pulse Oximetry 98 Narrative: GENERAL: Well-nourished, well-developed adult [male] in no obvious distress. SKIN: Warm and dry. EYES: Left eye normal. Right eye pupillary shape and response. No drainage. No icterus. Sclerae around iris reddened consistent with subconjunctival hemorrhage. HEAD: Atraumatic. Normocephalic. CARDIOVASCULAR: Regular rate and rhythm. RESPIRATORY: No accessory muscle use. Clear to auscultation. Breath sounds equal bilaterally. NEUROLOGICAL: Awake and alert. No obvious cranial nerve deficits. Motor grossly within normal limits. Normal speech. Assessment and Plan - Assessment (1) Subconjunctival hemorrhage of right eye Code(s): H11.31 - Conjunctival hemorrhage, right eye Status: Acute - Plan Patient is a 57-year-old female admitted under Valladares act due to psychosis and bizarre behavior. Hospitalist service consulted for evaluation of right eye. Patient denies any significant medical history however this is questionable due to her condition. Subconjunctival hemorrhage -Will resolve on its own; no intervention needed at this time -Lubricating eyedrops as desired for comfort -No eye makeup or contacts until healed -Recommend follow-up with outpatient auto rental clerk when released Thank you for this consult. Patient does not appear to need any further medical management so we will sign off at this time. Please reconsult if needed.
[2018-03-29] MEDS: Senna/Docusate Sodium 8.6/50 MG Tablet PO SCH ×2 (08:35→21:21)
[2018-03-29] MEDS: Artificial Tears Opth Drops 15 ML Bottle RIGHT EYE PRN (09:08)
[2018-03-29] MEDS: Ibuprofen 600 MG Tablet PO SCH ×3 (13:30→21:20)
--- NOTE | 2018-03-29 13:46 | P.PNPSY ---
Subjective Chief Complaint: psychosis Remarks: Chart reviewed and discussed with nursing staff. Patient continues to be confused and is unable to understand or negotiate treatment in her current psychotic state. She continuously requested xanax. She states that she was on Latuda in the past and that she took 10mg. I explained that this is a low dose and most patients are started on 40 mg and she diverted the conversation back to xanax. Patient states that she is sleeping and eating well. Consent for medication confirmed by telephone with son Alexy Cha, . Will start patient on medication today. Review of Systems All other systems reviewed negative except as stated in HPI Mental Status Examination Appearance: Appropriate Consciousness: Alert Orientation: Person, Place (At least) Motor Activity: Normal gait Speech: Unremarkable Language: Other (Rambling) Fund of Knowledge: Adequate Attention and Concentration: Easily distracted Memory: Unremarkable (Grossly intact on clinical exam) Mood: Other ("Up and down") Affect: Other (Silly, oddly related) Thought Process & Associations: Tangential Thought Content: Bizarre thinking, Hallucinations, Thought blocking Hallucination Type: Auditory Delusion Type: None Suicidal Ideation: No Suicidal Plan: No Suicidal Intention: No Homicidal Ideation: No Homicidal Plan: No Homicidal Intention: No Insight: Poor Judgment: Poor Assessment and Plan - Assessment (1) Unspecified psychosis Code(s): F29 - Unspecified psychosis not due to a substance or known physiological condition Status: Acute - Plan Plan: Continue current treatment plan. Justification for Continued Inpatient Stay: Moving patient to a less restrictive environment may result in her decompensation. Request Healthcare Surrogate/Guardian Advocate?: Yes
[2018-03-29] MEDS: traZODone 50 MG Tablet PO SCH (21:21)
[2018-03-30] MEDS: Ibuprofen 600 MG Tablet PO SCH ×2 (05:39→13:06)
[2018-03-30] MEDS: Senna/Docusate Sodium 8.6/50 MG Tablet PO SCH ×2 (08:34→22:46)
[2018-03-30] MEDS: Artificial Tears Opth Drops 15 ML Bottle RIGHT EYE PRN (08:35)
--- NOTE | 2018-03-30 09:24 | P.TTN ---
- Patient Problems Problems: 1. Discharge planning 2. Medication compliance 3. Knowledge deficit 4. Lack of coping skills - Progress Toward Goals Provider Present: Dr. Nahomi Farrell (Dr. Farrell will meet the patient for the first time today.) Psychiatric Counselors Present: Rome Nazario Jr., [facility] (Counselor will meet the patient to discuss safe discharge plan today.) - Documentation Teaching Recipient: Patient
--- NOTE | 2018-03-30 14:45 | ECG ---
Date Performed: 03/27/2018 Time Performed: 10:10:09 PTAGE: 57 years EKG: Sinus rhythm POSSIBLE LEFT ATRIAL ENLARGEMENT INCOMPLETE RIGHT BUNDLE BRANCH BLOCK BORDERLINE ECG NO PREVIOUS TRACING DOCTOR: Blair Metzger Interpretating Date/Time 03/30/2018 14:43:11
--- NOTE | 2018-03-30 19:52 | P.PNPSY ---
Subjective Chief Complaint: psychosis Remarks: Patient seen for follow-up, chart reviewed. Discussion with nursing staff reported that patient guarded, suspicious, compliant with medications. Patient noted to be bizarre with internal preoccupation. Patient slept well and drinking and showered. Patient was found in the room noted B, cooperative. Patient states that she is feeling "okay" reports sleeping well with adequate appetite, energy. She states that her weekend went "alright" reporting slight constipation. Patient with reality related endorsing auditory hallucinations of her 's voice but did not further elaborate. Patient does appear to be preoccupied during interview and somewhat disorganized. Review of Systems All other systems reviewed negative except as stated in HPI Mental Status Examination Appearance: Appropriate Consciousness: Alert Orientation: Person, Place (At least) Motor Activity: Normal gait Speech: Unremarkable Language: Adequate Fund of Knowledge: Adequate Attention and Concentration: Easily distracted Memory: Unremarkable (Grossly intact on clinical exam) Mood: Other ("Up and down") Affect: Other (Silly, oddly related) Thought Process & Associations: Disorganized, Tangential Thought Content: Bizarre thinking, Hallucinations, Thought blocking Hallucination Type: Auditory Delusion Type: None Suicidal Ideation: No Suicidal Plan: No Suicidal Intention: No Homicidal Ideation: No Homicidal Plan: No Homicidal Intention: No Insight: Poor Judgment: Poor Assessment and Plan - Assessment (1) Unspecified psychosis Code(s): F29 - Unspecified psychosis not due to a substance or known physiological condition Status: Acute - Plan Plan: Patient continues to be internally preoccupied at times, with some thought blocking and endorsing auditory hallucinations. Patient to continue current treatment. We will like to continue titration for psychosis. We will continue to monitor mood and behavior. Discharge planning in progress. Justification for Continued Inpatient Stay: At risk of further decompensation at lower level care. Request Healthcare Surrogate/Guardian Advocate?: Yes
[2018-03-30] MEDS: traZODone 50 MG Tablet PO SCH (22:46)
[2018-03-31] MEDS: Senna/Docusate Sodium 8.6/50 MG Tablet PO SCH ×3 (01:54→20:02)
[2018-03-31] MEDS: Ibuprofen 600 MG Tablet PO SCH ×5 (01:54→21:50)
[2018-03-31] MEDS: traZODone 50 MG Tablet PO SCH ×2 (01:54→20:02)
[2018-03-31] MEDS: Artificial Tears Opth Drops 15 ML Bottle RIGHT EYE PRN (16:56)
--- NOTE | 2018-03-31 21:23 | P.PNPSY ---
Subjective Chief Complaint: psychosis Remarks: Patient seen for follow-up, chart reviewed. Discussion with nursing staff reported that patient slept better, noted with slightly less speech delay but continued to be internally preoccupied. Patient was found ambulating on unit noted B, cooperative. Patient states he is feeling tired but her mood has been good with no difficulty eating and drinking or bowel movement. Patient states that she is feeling somewhat somnolent due to medication. Patient previously was convinced that she was given a hypnotic but was reassured that she only received her daily dose of Latuda along with a laxative for recent report of constipation. Patient noted to continue to have speech delay and some thought blocking along with some internal preoccupation during interview. Patient also continues report auditory hallucinations with a contact and was unable to elaborate. Review of Systems All other systems reviewed negative except as stated in HPI Mental Status Examination Appearance: Appropriate Consciousness: Alert Orientation: Person, Place (At least) Motor Activity: Normal gait Speech: Unremarkable Language: Adequate Fund of Knowledge: Adequate Attention and Concentration: Easily distracted Memory: Unremarkable (Grossly intact on clinical exam) Mood: Other ("Up and down") Affect: Other (Silly, oddly related) Thought Process & Associations: Disorganized, Tangential Thought Content: Bizarre thinking, Hallucinations, Thought blocking Hallucination Type: Auditory Delusion Type: None Suicidal Ideation: No Suicidal Plan: No Suicidal Intention: No Homicidal Ideation: No Homicidal Plan: No Homicidal Intention: No Insight: Poor Judgment: Poor Assessment and Plan - Assessment (1) Unspecified psychosis Code(s): F29 - Unspecified psychosis not due to a substance or known physiological condition Status: Acute - Plan Plan: Patient continues with internal preoccupation, speech delay and continues to have some thought blocking with slightly improving. We will continue current doses patient with the restarted Latuda 40 mg p.o. daily, continue rest of medications. Continue to monitor mood and behavior. Discharge planning a progress. Justification for Continued Inpatient Stay: At risk of further decompensation at lower level care. Request Healthcare Surrogate/Guardian Advocate?: Yes
[2018-04-01] MEDS: Ibuprofen 600 MG Tablet PO SCH ×3 (05:39→21:13)
[2018-04-01] MEDS: Artificial Tears Opth Drops 15 ML Bottle RIGHT EYE PRN (08:27)
[2018-04-01] MEDS: Senna/Docusate Sodium 8.6/50 MG Tablet PO SCH ×2 (08:28→20:23)
--- NOTE | 2018-04-01 14:13 | P.TTN ---
- Patient Problems Problems: 1. Discharge planning 2. Medication compliance 3. Knowledge deficit 4. Lack of coping skills - Progress Toward Goals Provider Present: Dr. Nahomi Farrell (Dr. Farrell will meet the patient for the first time today. April 01, 2018 Dr. Farrell will take the patient to court to advocate for further stabilization, Dr. Farrell is titrating medication, patient is still experiencing thought blocking at this time.) Psychiatric Counselors Present: Rome Nazario Jr., [facility] [place] (Counselor will meet the patient to discuss safe discharge plan today. April 01, 2018 patient presents as mostly pleasant with disorganized thoughts and requires further stabilization. The patient will return to her residence where she is domiciled with her 2 children.) Group Spec/RT/OT/[place] Present: JUVENAL Amaral (Patient attends select groups.) - Documentation Teaching Recipient: Patient
--- NOTE | 2018-04-01 14:16 | P.PNPSY ---
Subjective Chief Complaint: psychosis Remarks: Patient seen for follow-up, chart reviewed. Discussion with nursing staff reported that patient irritable this morning, slept better last evening continues with some internal preoccupation on the unit. Patient was found to participate in group noted B, cooperative. Patient states that she is feeling "more responsive to everything, cognitively better" when asked about how she is feeling cognitively better which she was unable to explain. She states that she continues to have auditory hallucinations which are "better, lessening but continue to be vague". Patient states that she spoke with her son which went well but did not elaborate. She reports eating and drinking well without difficulty or bowel movement. And tolerating medications well. Patient continues to be noted to be with some thought blocking as well as internal preoccupation at times. Nursing staff had reported the patient continued to state that her dad was a dog which she patient denied yesterday when asked about this. Review of Systems All other systems reviewed negative except as stated in HPI Mental Status Examination Appearance: Appropriate Consciousness: Alert Orientation: Person, Place (At least) Motor Activity: Normal gait Speech: Unremarkable Language: Adequate Fund of Knowledge: Adequate Attention and Concentration: Easily distracted Memory: Unremarkable (Grossly intact on clinical exam) Mood: Other ("Up and down") Affect: Other (Silly, oddly related) Thought Process & Associations: Disorganized (Lessening ), Tangential Thought Content: Bizarre thinking, Hallucinations, Thought blocking Hallucination Type: Auditory Delusion Type: None Suicidal Ideation: No Suicidal Plan: No Suicidal Intention: No Homicidal Ideation: No Homicidal Plan: No Homicidal Intention: No Insight: Poor Judgment: Poor Assessment and Plan - Assessment (1) Unspecified psychosis Code(s): F29 - Unspecified psychosis not due to a substance or known physiological condition Status: Acute - Plan Plan: Patient continues with some which are internal preoccupation reported by nursing staff. Patient continues to be noted with some thought blocking and internal preoccupation during interview but is lessening. We will continue current treatment. We will move Latuda to evening dose as she is reporting sedation during the day. We will continue to monitor mood and behavior. Patient will present to mental health court tomorrow for involuntary hospitalization. Discharge planning a progress. Justification for Continued Inpatient Stay: At risk of further decompensation at lower level care. Request Healthcare Surrogate/Guardian Advocate?: Yes
[2018-04-01] MEDS: traZODone 50 MG Tablet PO SCH (20:23)
[2018-04-02] MEDS: Ibuprofen 600 MG Tablet PO SCH ×3 (05:20→21:14)
[2018-04-02] MEDS: Senna/Docusate Sodium 8.6/50 MG Tablet PO SCH ×2 (08:34→21:16)
--- NOTE | 2018-04-02 14:39 | P.PNPSY ---
Subjective Chief Complaint: psychosis Remarks: Patient seen for follow-up, chart reviewed. Discussion with nursing staff reported that patient continues be noted to be with bizarre behavior on the unit continues with vague auditory hallucinations. 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 Patient was later found ambulating on the unit noted B, cooperative. Patient states she spoke with her son today and that he is bringing better for her hearing aids. She states that she is feeling "better" she continues report auditory hallucinations but states it is lessening. She states her mood has been "good" simply worried about her children while being here in the hospital. Discussion of decreasing Latuda to 60 mg was reviewed with patient which she was reluctant stating that it makes her too somnolent but agreed to have trazodone reduced to 25 mg p.o. at bedtime. Review of Systems All other systems reviewed negative except as stated in HPI Mental Status Examination Appearance: Appropriate Consciousness: Alert Orientation: Person, Place (At least) Motor Activity: Normal gait Speech: Unremarkable Language: Adequate Fund of Knowledge: Adequate Attention and Concentration: Easily distracted Memory: Unremarkable (Grossly intact on clinical exam) Mood: Other ("Up and down") Affect: Other (Silly, oddly related) Thought Process & Associations: Disorganized (Lessening ), Tangential Thought Content: Bizarre thinking, Hallucinations, Thought blocking (Lessening) Hallucination Type: Auditory Delusion Type: Paranoid Suicidal Ideation: No Suicidal Plan: No Suicidal Intention: No Homicidal Ideation: No Homicidal Plan: No Homicidal Intention: No Insight: Poor Judgment: Poor Assessment and Plan - Assessment (1) Unspecified psychosis Code(s): F29 - Unspecified psychosis not due to a substance or known physiological condition Status: Acute - Plan Plan: Patient continues to be paranoid and very suspicious and continues to have auditory hallucinations. We will continue to titrate trazodone to 60 mg p.o. at bedtime, with decrease trazodone to 25 mg nightly, continue rest of medications. Continue to monitor mood and behavior. Discharge planning a progress. Justification for Continued Inpatient Stay: At risk of further decompensation at lower level care. Request Healthcare Surrogate/Guardian Advocate?: Yes
[2018-04-02] MEDS: traZODone 50 MG Tablet PO SCH (21:15)
[2018-04-03] MEDS: Ibuprofen 600 MG Tablet PO SCH ×2 (06:07→14:21)
[2018-04-03] MEDS: Senna/Docusate Sodium 8.6/50 MG Tablet PO SCH ×2 (08:44→21:07)
--- NOTE | 2018-04-03 16:08 | P.PNPSY ---
Subjective Chief Complaint: psychosis Remarks: Patient seen for follow-up, chart reviewed. Discussion with nursing staff reported that patient visible on the unit, cooperative with staff. Patient found ambulating on the unit, noted to be calm and cooperative. Patient states having visited with her son, attending groups, reports sleeping better. She states feeling better, feeling "more like my self". She reports decreased AH. Review of Systems All other systems reviewed negative except as stated in HPI Mental Status Examination Appearance: Appropriate Consciousness: Alert Orientation: Person, Place (At least) Motor Activity: Normal gait Speech: Unremarkable Language: Adequate Fund of Knowledge: Adequate Attention and Concentration: Easily distracted Memory: Unremarkable (Grossly intact on clinical exam) Mood: Other ("Up and down") Affect: Other (Silly, oddly related) Thought Process & Associations: Disorganized (Lessening ), Tangential Thought Content: Bizarre thinking, Hallucinations, Thought blocking (Lessening) Hallucination Type: Auditory Delusion Type: Paranoid (lessening) Suicidal Ideation: No Suicidal Plan: No Suicidal Intention: No Homicidal Ideation: No Homicidal Plan: No Homicidal Intention: No Insight: Poor Judgment: Impulsive Assessment and Plan - Assessment (1) Unspecified psychosis Code(s): F29 - Unspecified psychosis not due to a substance or known physiological condition Status: Acute - Plan Plan: Patient noted with improved affect, less paranoid, decrease in AH. Continue current treatment, continue to monitor mood and behavior. Dsicharge planning in progress Justification for Continued Inpatient Stay: At risk for further decompensation at lower level of care. Request Healthcare Surrogate/Guardian Advocate?: Yes
[2018-04-03] MEDS: traZODone 50 MG Tablet PO SCH (21:06)
[2018-04-04] MEDS: Senna/Docusate Sodium 8.6/50 MG Tablet PO SCH ×2 (08:35→20:56)
[2018-04-04] MEDS: Ibuprofen 600 MG Tablet PO PRN (13:35)
--- NOTE | 2018-04-04 18:50 | P.PNPSY ---
Subjective Chief Complaint: psychosis Remarks: Reviewed electronic medical records and discussed case with staff. Follow-up was conducted in the patient's room with KAREN Negron present. Her nurse reports that she is been discharge focused and internally stimulated somewhat today. Patient states that she feels "better". States that she is been sleeping good has had a good appetite. She reports that her mood is been "pretty good". She denies any auditory hallucinations. She does request to have access to her cell phone for approximately 1 hour to attend a [employer]. Advised her that I did not feel comfortable doing that as it is the rule of the unit not to allow the patient's to have their cell phones. However, I have requested that the nurse contact the hospital digital marketing analyst to see if services can be arranged for tomorrow morning. Mental Status Examination Appearance: Appropriate Consciousness: Alert Orientation: Person, Place (At least) Motor Activity: Normal gait Speech: Unremarkable Language: Adequate Fund of Knowledge: Adequate Attention and Concentration: Easily distracted Memory: Unremarkable (Grossly intact on clinical exam) Mood: Other ("Up and down") Affect: Other (Silly, oddly related) Thought Process & Associations: Disorganized (Lessening ), Tangential Thought Content: Bizarre thinking, Hallucinations, Thought blocking (Lessening) Hallucination Type: Auditory Delusion Type: Paranoid Suicidal Ideation: No Suicidal Plan: No Suicidal Intention: No Homicidal Ideation: No Homicidal Plan: No Homicidal Intention: No Insight: Poor Judgment: Poor Assessment and Plan - Assessment (1) Unspecified psychosis Code(s): F29 - Unspecified psychosis not due to a substance or known physiological condition Status: Acute - Plan Plan: Patient will be reevaluated by the attending psychiatrist. Continue with current treatment plan. Justification for Continued Inpatient Stay: Moving this patient to a less restrictive environment would likely result in decompensation. Request Healthcare Surrogate/Guardian Advocate?: Yes
[2018-04-04] MEDS: traZODone 50 MG Tablet PO SCH (20:55)
[2018-04-05] MEDS: Senna/Docusate Sodium 8.6/50 MG Tablet PO SCH ×2 (08:51→20:43)
[2018-04-05] MEDS ORDERED: Acetaminophen 500 MG Tablet PO PRN (12:35)
--- NOTE | 2018-04-05 12:35 | P.PNPSY ---
Subjective Chief Complaint: psychosis Remarks: Reviewed electronic medical records and discussed case with staff. Follow-up was conducted in the [facility] area with KAREN Hurtado. Patient is discharged focused. She talks in circles with poor concentration. She states that the Latuda is giving her a headache and believes that the Latuda comes in 10 mg. I reassured patient that the lowest dose of Latuda is 40 mg. She did not take the medication last night with 350 calories. I educated patient that it must be taken with food. She is requesting tylenol for chronic back pain. Review of Systems All other systems reviewed negative except as stated in HPI Mental Status Examination Appearance: Appropriate Consciousness: Alert Orientation: Person, Place (At least) Motor Activity: Normal gait Speech: Unremarkable Language: Adequate Fund of Knowledge: Adequate Attention and Concentration: Easily distracted Memory: Unremarkable (Grossly intact on clinical exam) Mood: Other ("Up and down") Affect: Other (Silly, oddly related) Thought Process & Associations: Disorganized (Lessening ), Tangential Thought Content: Bizarre thinking, Hallucinations, Thought blocking (Lessening) Hallucination Type: Auditory Delusion Type: Paranoid Suicidal Ideation: No Suicidal Plan: No Suicidal Intention: No Homicidal Ideation: No Homicidal Plan: No Homicidal Intention: No Insight: Poor Judgment: Poor Assessment and Plan - Assessment (1) Unspecified psychosis Code(s): F29 - Unspecified psychosis not due to a substance or known physiological condition Status: Acute - Plan Plan: Patient will be reevaluated by the attending psychiatrist. Continue with current treatment plan. Justification for Continued Inpatient Stay: Moving patient to a less restrictive environment may result in her decompensation. Request Healthcare Surrogate/Guardian Advocate?: Yes
[2018-04-05] MEDS ORDERED: traZODone 50 MG Tablet PO SCH (12:37)
[2018-04-05] MEDS: Artificial Tears Opth Drops 15 ML Bottle RIGHT EYE PRN (15:43)
[2018-04-05] MEDS: Ibuprofen 600 MG Tablet PO PRN (21:09)
[2018-04-06] MEDS: Senna/Docusate Sodium 8.6/50 MG Tablet PO SCH (08:49)
--- NOTE | 2018-04-06 16:25 | P.DSPSY ---
Psychiatry Discharge Summary Inpatient Psychiatric care?: Yes Advance Directives: No Mental Health Advance Directive: No Health Care Proxy: No - Admission Admission Date: March 26, 2018 15:45 - Admission Diagnosis (1) Unspecified psychosis Code(s): F29 - Unspecified psychosis not due to a substance or known physiological condition Brief History: Patient is a 57-year-old female with a likely history of psychosis. She is being admitted to the psychiatric unit for bizarre behavior and thought process. Patient has poor insight and is evasive during the interview. She appears to have difficulty understanding my speech and asked me multiple times to repeat myself. She is responding to internal stimuli throughout the interview looking about the room and laughing and smiling to herself. She minimizes her psychiatric history and gives frequent contradicting answers. Per record, patient had bizarre delusions including that her dad was her dog, that other people were driving her car, and that somebody was coming through the window. Today, she denies suicidal or homicidal ideation intent or plan. Past psych: pt admits to multiple inpatient admissions, denies suicide attempts , claims to have only been on latuda which she is not compliant with for the past seven months Medical: see chart Social: has a and 3 children, denies substance use. 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 Patient was admitted to a locked, inpatient psychiatric unit. Appropriate precautions were in place throughout patient's hospital stay. Patient was seen and examined on the unit by psychiatry. Psychotropic medications were adjusted. There was no evidence of any suicidality or homicidality on the inpatient unit. Patient's psychotic symptoms and mood improved with the benefit of psychopharmacological treatment and had no behavioral disturbance since admission. Patient was noted to have reached stable mood, no longer noted to be internally preoccupied, paranoid or having auditory hallucinations. Patient was noted to participate and engage in treatment and interact with staff adequately. Patient noted to be future oriented with plans to continue treatment and outpatient follow-up appointments for continuity of care. Counselor has arranged discharge plan which patient return back to her residence with her children. On the day of discharge: Patient seen and examined; chart reviewed. Case discussed with nurse and counselor. No behavioral issues overnight. On my examination today, the patient denies any suicidal homicidal ideation, intent or plan on direct questioning and contracts for safety. Patient denies any perceptional disturbances and no delusional material verbalized today. Patient denies any side effects from medication and has understanding of medication regimen and education. No physical complaints. Suicide and violence risk assessment on day of discharge both suggest lower imminent risk, and the patient's level of function is adequate for plan level of outpatient care. Patient has maximized benefit from this inpatient psychiatric hospital stay and will be discharged with discharge plan as arranged by counselor. Patient advised to return to psychiatric emergency room for any concerning psychiatric symptoms. Patient agrees with plan. - Discharge Discharge Date: 04/06/18 - Discharge Diagnosis (1) Unspecified psychosis Code(s): F29 - Unspecified psychosis not due to a substance or known physiological condition Status: Acute Discharge Disposition: Home - Discharge Instructions Discharge Diet: Heart Healthy Diet Activities You Can Perform: Regular- No Restrictions - Discharge Time > 30 minutes Mental Status Examination Appearance: Appropriate Consciousness: Alert Orientation: Person, Place, Date/Time Motor Activity: Normal gait Speech: Unremarkable Language: Adequate Fund of Knowledge: Adequate Attention and Concentration: Adequate Memory: Unremarkable Mood: Appropriate Affect: Appropriate Thought Process & Associations: Intact, Goal directed, Linear Thought Content: Appropriate Hallucination Type: None Delusion Type: None Suicidal Ideation: No Suicidal Plan: No Suicidal Intention: No Homicidal Ideation: No Homicidal Plan: No Homicidal Intention: No Insight: Fair Judgment: Impulsive Discharge/Advance Care Plan - Results Vital Signs: Last Vital Signs Temp 98 F 04/06/18 05:28 Pulse 57 L 04/06/18 05:28 Resp 18 04/06/18 05:28 BP 112/56 L 04/06/18 05:28 Pulse Ox 98 04/06/18 05:28 Lab Results: Laboratory Results Hemoglobin A1c 5.8 % (4.3-6.0) 03/28/18 06:07 Triglycerides 196 mg/dL (42-150) H 03/27/18 08:57 Cholesterol 172 mg/dL (120-200) 03/27/18 08:57 LDL Cholesterol, Calc 86 mg/dL (0-99) 03/27/18 08:57 HDL Cholesterol 47.0 mg/dL (40.0-60.0) 03/27/18 08:57 TSH 1.960 uIU/mL (0.358-3.740) 03/27/18 08:57 Urine Culture Comments Culture not ind 03/26/18 02:50 Summary of Procedures: None Imaging: ITS Impressions Head CT 03/26/18 01:45 CONCLUSION: No acute intracranial abnormality. . Pending Results: None - Medications Number of antipsychotic medications at discharge: 1 - Discharge Care Plan Goals to Promote Your Health: * To prevent worsening of your condition and complications * To maintain your health at the optimal level Directions to Meet Your Goals: Take your medications as prescribed Follow your dietary instruction Follow activity as directed Keep your appointments as scheduled Take your immunizations and boosters as scheduled If your symptoms worsen call your PCP, if no PCP go to Urgent Care Center or Emergency Room For 23/12 questions related to your inpatient stay or results of tests pending at discharge, please contact Dr. Ward Farrell MD at Smoking is Dangerous to Your Health. Avoid second hand smoking
== END 2018-04-06 13:55 | disposition home or self-care (01) ==
LOC: NEPD 01:12 → NEDA 15:45 → H260 18:35
PROVIDERS: ADMIT Student in an Organized Health Care Education/Training Program; ATTEND Student in an Organized Health Care Education/Training Program